=== PATIENT | female | born 1980 | race Caucasian/White ===

== ENCOUNTER 2018-08-30 07:07 | Emergency (ER) | payer BC ==
[2018-08-30 07:28] VITALS: BP 151/90
--- NOTE | 2018-08-30 07:43 | UC ---
Throat Pain/Nasal Oscar HPI - HPI Summary HPI Summary: sore throat x 5 days runny nose, nasal congestion , pnd no cough , no chest congestion, no fever, no chills , no body aches hx of seasonal allergies - History of Current Complaint Chief Complaint: UCGeneralIllness Stated Complaint: SORE THROAT Time Seen by Provider: 08/30/18 07:25 Hx Obtained From: Patient Hx Last Menstrual Period: Depo-Provera ?: No Onset/Duration: Gradual Onset, Lasting Days - 5, Still Present Severity: Moderate Pain Intensity: 8 Cough: None Associated Signs & Symptoms: Positive: Nasal Discharge. Negative: Dysphagia, FB Sensation, Drooling, Wheezing, Hoarseness, Sinus Discomfort, Fever, Vomiting , Rash Related History: Seasonal Allergies - Allergies/Home Medications Allergies/Adverse Reactions: Allergies Allergy/AdvReac Type Severity Reaction Status Date / Time No Known Allergies Allergy Verified 08/30/18 07:24 Home Medications: Home Medications Ibuprofen TAB* [Advil TAB*] 600 mg PO Q6H PRN 08/30/18 [History Confirmed ] LoraTADine TAB(NF) [Claritin 10 MG TAB(NF)] 10 mg PO ONCE 08/30/18 [History Confirmed 08/30/18] medroxyPROGESTERone ACETATE* [DEPO-Provera] 150 mg IM Q90D 08/30/18 [History Confirmed 08/30/18] PMH/Surg Hx/FS Hx/Imm Hx Previously Healthy: Yes - Surgical History Surgical History: None - Family History Known Family History: Negative: Diabetes - Social History Alcohol Use: Weekly Substance Use Type: None Smoking Status (MU): Former Smoker Amount Used/How Often: 1/2 day Length of Time of Smoking/Using Tobacco: 1/2 PPD On and Off for years When Did the Patient Quit Smoking/Using Tobacco: 2017 Review of Systems All Other Systems Reviewed And Are Negative: Yes Constitutional: Positive: Negative Skin: Positive: Negative Eyes: Positive: Negative ENT: Positive: Sore Throat, Nasal Discharge. Negative: Epistaxis, Dental Pain, Ear Ache, Sinus Congestion, Sinus Pain/Tenderness Respiratory: Negative: Cough Cardiovascular: Positive: Negative Gastrointestinal: Positive: Negative Is Patient Immunocompromised?: No Physical Exam Triage Information Reviewed: Yes Appearance: Well-Appearing, No Pain Distress, Well-Nourished Vital Signs: Initial Vital Signs Temp 98.5 F 08/30/18 07:21 Pulse 106 08/30/18 07:21 Resp 18 08/30/18 07:21 BP 151/90 08/30/18 07:21 Pulse Ox 100 08/30/18 07:21 Vital Signs Reviewed: Yes Eye Exam: Normal Eyes: Positive: Conjunctiva Clear ENT: Positive: Normal ENT inspection, Hearing grossly normal, Pharynx normal, Nasal drainage, TMs normal. Negative: Pharyngeal erythema, Nasal congestion, TM bulging, TM dull, TM red, Tonsillar swelling, Tonsillar exudate Neck exam: Normal Neck: Positive: Supple, Nontender, No Lymphadenopathy Respiratory: Positive: Chest non-tender, Lungs clear, Normal breath sounds Cardiovascular: Positive: RRR, No Murmur, Pulses Normal Abdominal Exam: Normal Skin Exam: Normal Throat Pain/Nasal Course/Dx - Differential Dx/Diagnosis Provider Diagnosis: URI (upper respiratory infection) Discharge - Sign-Out/Discharge Documenting (check all that apply): Patient Departure All imaging exams completed and their final reports reviewed: No Studies - Discharge Plan Condition: Stable Disposition: HOME Patient Education Materials: Upper Respiratory Infection (DC) Referrals: No Primary Care Phys,NOPCP [Primary Care Provider] - If Needed - Billing Disposition and Condition Condition: STABLE Disposition: Home
== END 2018-08-30 07:41 | disposition home or self-care (01) ==
LOC: UCCORT 07:07
DX: J06.9 Acute upper respiratory infection, unspecified (principal); Z87.891 Personal history of nicotine dependence
CPT/HCPCS: 99211; G0463

== ENCOUNTER 2019-02-09 07:28 | Emergency (ER) | payer BC ==
[2019-02-09 07:53] VITALS: BP 146/87
--- NOTE | 2019-02-09 08:39 | UC ---
Throat Pain/Nasal Oscar HPI - HPI Summary HPI Summary: Pt presents with c/o nasal congestion, cough, ST X 1 week. Pt has not taken any OTC medications for symptoms management. - History of Current Complaint Chief Complaint: UCRespiratory Stated Complaint: SORE THROAT RUNNY NOSE BILATERAL ARM PAIN Time Seen by Provider: 02/09/19 08:25 Hx Obtained From: Patient Hx Last Menstrual Period: "the end of December" recently switched from Depo to the pill ?: No Onset/Duration: Gradual Onset, Lasting Weeks - 1, Still Present Severity: Moderate Pain Intensity: 6 Cough: Nonproductive Associated Signs & Symptoms: Positive: Dysphagia, Sinus Discomfort, Nasal Discharge Related History: Seasonal Allergies - unsure if has them - Epiglottits Risk Factors Epiglottis Risk Factors: Negative - Allergies/Home Medications Allergies/Adverse Reactions: Allergies Allergy/AdvReac Type Severity Reaction Status Date / Time No Known Allergies Allergy Verified 02/09/19 07:48 Home Medications: Home Medications Norethindrone-E.estradiol-Iron [Serena Fe 05/06] 1 tab PO DAILY 02/09/19 [History Confirmed 02/09/19] PMH/Surg Hx/FS Hx/Imm Hx Previously Healthy: Yes - Surgical History Surgical History: None - Family History Known Family History: Negative: Diabetes - Social History Occupation: Employed Full-time Lives: With Family Alcohol Use: Weekly Substance Use Type: None Smoking Status (MU): Former Smoker Amount Used/How Often: 1/2 day Length of Time of Smoking/Using Tobacco: 1/2 PPD On and Off for years Have You Smoked in the Last Year: Yes When Did the Patient Quit Smoking/Using Tobacco: 2018 - Immunization History Vaccination Up to Date: Yes Review of Systems All Other Systems Reviewed And Are Negative: Yes Constitutional: Positive: Fatigue Skin: Positive: Negative Eyes: Positive: Negative ENT: Positive: Sore Throat, Nasal Discharge, Sinus Congestion Respiratory: Positive: Cough Cardiovascular: Positive: Negative Gastrointestinal: Positive: Negative Genitourinary: Positive: Negative Motor: Positive: Negative Neurovascular: Positive: Negative Musculoskeletal: Positive: Negative Neurological: Positive: Negative Psychological: Positive: Negative Is Patient Immunocompromised?: No Physical Exam Triage Information Reviewed: Yes Appearance: Well-Appearing Vital Signs: Initial Vital Signs Temp 97.7 F 02/09/19 07:46 Pulse 94 10/26/19 07:46 Resp 16 02/09/19 07:46 BP 146/87 02/09/19 07:46 Pulse Ox 100 02/09/19 07:46 Vital Signs Reviewed: Yes Eye Exam: Normal ENT: Positive: Nasal congestion Dental Exam: Normal Neck exam: Normal Respiratory Exam: Normal Cardiovascular Exam: Normal Neurological Exam: Normal Psychological Exam: Normal Skin Exam: Normal Throat Pain/Nasal Course/Dx - Differential Dx/Diagnosis Differential Diagnosis/HQI/PQRI: Pharyngitis, Sinusitis, Tonsillitis, URI Provider Diagnosis: Viral syndrome Discharge ED - Sign-Out/Discharge Documenting (check all that apply): Patient Departure All imaging exams completed and their final reports reviewed: No Studies - Discharge Plan Condition: Stable Disposition: HOME Patient Education Materials: Decongestant/Expectorant (By mouth), Viral Syndrome (ED) Referrals: [facility]FERR[facility] [Outside] No Primary Care Phys,NOPCP [Primary Care Provider] - Additional Instructions: Please follow up with your PCP as needed. If your symptoms worsens please follow up with your PCP or return to clinic for re-evaluation. - Billing Disposition and Condition Condition: STABLE Disposition: Home
== END 2019-02-09 08:56 | disposition home or self-care (01) ==
LOC: UCCORT 07:28
DX: B34.9 Viral infection, unspecified (principal); J02.9 Acute pharyngitis, unspecified; R09.89 Other specified symptoms and signs involving the circulatory and respiratory systems; R13.10 Dysphagia, unspecified; M79.602 Pain in left arm; M79.601 Pain in right arm; R05 Cough; Z87.891 Personal history of nicotine dependence
CPT/HCPCS: 87651; 99211; G0463